=== PATIENT | female | born 1980 | race Caucasian/White ===

== ENCOUNTER 2021-06-10 16:43 | Outpatient (CLI) | payer OTHER ==
--- NOTE | 2021-06-11 13:40 | XRAY Report ---
PROCEDURE: Ribs 2 View LT INDICATIONS: L SIDE RIB PX TECHNIQUE: 3 views of the left ribs were acquired. COMPARISON: None FINDINGS: Surgical changes and devices: None. Bones and chest wall: No fractures or dislocations. No suspicious bony lesions. Overlying soft tis sues appear unremarkable. Calcification noted adjacent to the lateral margin of the left humeral hea d compatible with calcific tendinitis. Lungs and pleura: The visualized lung appears clear. No pleural effusions or pneumothorax are visib le. IMPRESSION: No displaced rib fracture. Left rotator cuff calcific tendinitis. Reviewed by: Yissel Chapin MD, PhD on 06/11/2021 1:39 PM PDT Approved by: Yissel Chapin MD, PhD on 06/11/2021 1:39 PM PDT Station ID: [id number]
== END 2021-06-10 23:59 | disposition home or self-care (01) ==
LOC: DI.N 16:43
PROVIDERS: ATTEND Family Medicine
DX: R07.81 Pleurodynia (principal); M75.32 Calcific tendinitis of left shoulder

== ENCOUNTER 2021-08-07 08:00 | Outpatient (CLI) | payer OTHER ==
--- NOTE | 2021-08-07 14:09 | XRAY Report ---
PROCEDURE: Knee 2 View LT INDICATIONS: KNEE PAIN, LEFT TECHNIQUE: 2 views of the left knee(s) were acquired. COMPARISON: None. FINDINGS: Bones: No fractures or dislocations. Moderate tricompartmental osteoarthritis is seen more prominent in medial femoral tibial compartment and patellofemoral compartment. No suspicious bony lesions. Soft tissues: Moderate suprapatellar joint effusion. No suspicious soft tissue calcifications. IMPRESSION: Moderate tricompartmental osteoarthritis. No fracture or dislocation. Moderate joint eff usion. Reviewed by: Vinny Ross MD on 08/07/2021 2:07 PM PDT Approved by: Vinny Ross MD on 08/07/2021 2:07 PM PDT Station ID: [id number]
--- NOTE | 2021-08-07 14:32 | XRAY Report ---
PROCEDURE: Cervical Spine 2 View INDICATIONS: NECK STRAIN TECHNIQUE: 3 view(s) of the cervical spine were acquired. COMPARISON: None. FINDINGS: Bones: No fractures or dislocations to the T1 level. The lateral masses of C1 appear intact on the odontoid view. No suspicious bony lesions. Soft tissues: No prevertebral soft tissue swelling. IMPRESSION: No evidence acute bony abnormality of the cervical spine. If clinical suspicion and/or symptoms persist, further assessment with repeat plain films or advanced imaging (e.g., CT, MRI, or bone scan) may be helpful for further assessment. Reviewed by: Celso Barajas MD on 08/07/2021 2:31 PM PDT Approved by: Celso Barajas MD on 08/07/2021 2:31 PM PDT Station ID: [id number]
== END 2021-08-07 23:59 | disposition home or self-care (01) ==
LOC: DI.N 08:00
PROVIDERS: ATTEND Family Medicine
DX: S16.1XXA Strain of muscle, fascia and tendon at neck level, initial encounter (principal); M17.12 Unilateral primary osteoarthritis, left knee; M25.462 Effusion, left knee

== ENCOUNTER 2023-02-02 08:00 | Outpatient (CLI) | payer OTHER ==
[2023-02-03 21:19] LABS: BACTERIAL VAGINOSIS DNA NEGATIVE (NEGATIVE); CANDIDA GLABRATA DNA NEGATIVE (NEGATIVE); CANDIDA GROUP DNA NEGATIVE (NEGATIVE); CANDIDA KRUSEI DNA NEGATIVE (NEGATIVE); TRICHOMONAS VAGINALIS DNA NEGATIVE (NEGATIVE)
== END 2023-02-02 23:59 | disposition home or self-care (01) ==
LOC: LAB.N 08:00
PROVIDERS: ATTEND Physician Assistant Medical
DX: L29.8 Other pruritus (principal)
CPT/HCPCS: 81514

== ENCOUNTER 2023-02-03 19:42 | Outpatient (CLI) | payer OTHER ==
--- NOTE | 2023-02-04 10:51 | XRAY Report ---
PROCEDURE: Chest 2 View X-Ray INDICATIONS: ACUTE COUGH TECHNIQUE: 2 views of the chest were acquired. COMPARISON: None. FINDINGS: Surgical changes and devices: None. Lungs and pleura: No pleural effusions or pneumothorax. Linear opacity within the left mid/upper dereck g field. Possible right medial basilar opacity.. Mediastinum: Mediastinal contours appear normal. Heart size is normal. Bones and chest wall: No suspicious bony lesions. Overlying soft tissues appear unremarkable. IMPRESSION: Linear opacity within the left mid/upper lung field. Possible right medial basilar opacity. Recommend follow-up radiograph in 6-8 weeks to ensure resolution or stability. Reviewed by: Sidney Dailey MD on 02/04/2023 10:50 AM [facility] Approved by: Sidney Dailey MD on 02/04/2023 10:50 AM [facility] Station ID: [id number]
== END 2023-02-03 19:43 | disposition home or self-care (01) ==
LOC: DI 19:42
PROVIDERS: ATTEND Physician Assistant Medical
DX: R05.1 Acute cough (principal); R91.8 Other nonspecific abnormal finding of lung field